=== PATIENT | female | born 1985 | race Caucasian/White ===

== ENCOUNTER 2020-04-10 00:25 | Emergency (ER) | payer MEDICAID ==
[~2020-04-10] VITALS: Ht 165.1 cm; Wt 74.8 kg
--- NOTE | 2020-04-10 00:36 | NUR ---
CALLED FOR TRIAGE, NO ANSWER.
--- NOTE | 2020-04-10 00:43 | NUR ---
CALLED FOR TRIAGE, NO ANSWER.
--- NOTE | 2020-04-10 01:06 | NUR ---
CALLED FOR TRIAGE, NO ANSWER.
[2020-04-10 02:15] VITALS: BP 120/67
[2020-04-10] MEDS ORDERED: CLINDAMYCIN HCL 150 MG CAPSULE PO ONE ×2 (02:48→03:00)
== END 2020-04-10 02:53 | disposition home or self-care (01) ==
LOC: ER 00:31
DX: K08.89 Other specified disorders of teeth and supporting structures (principal); F41.9 Anxiety disorder, unspecified; F32.9 Major depressive disorder, single episode, unspecified; Z88.0 Allergy status to penicillin; Z88.1 Allergy status to other antibiotic agents